=== PATIENT | female | born 1945 | race Caucasian/White ===

== ENCOUNTER 2024-10-10 15:25 | Emergency (ER) | payer MEDICARE, SELFPAY ==
--- NOTE | ~2024-10-10 | XR_ITS ---
CLINICAL HISTORY: right side chest wall pain Frontal chest and right ribs three views Comparison: None Findings: Lungs are clear without acute infiltrates. Heart size is normal. No pneumothorax. No acute fracture or dislocation in the rib cage. No significant focal bony abnormalities. Impression: No significant abnormalities This document has been electronically signed by: Darell Johnson MD on 10/10/2024 17:38:19
--- NOTE | ~2024-10-10 | XR_ITS ---
CLINICAL HISTORY: fall Left ankle three views Comparison: None Findings: Nondisplaced medial malleolus fracture. No other acute bony abnormality noted. Ankle mortise is intact. Impression: Nondisplaced medial malleolus fracture This document has been electronically signed by: Darell Johnson MD on 10/10/2024 17:40:52
--- NOTE | ~2024-10-10 | XR_ITS ---
CLINICAL HISTORY: s p fall Pelvis and right hip two views Comparison: None Findings: No acute fracture or dislocation identified. Mild degenerative change in the hips. No radiopaque foreign body noted. Impression: No acute bony abnormality This document has been electronically signed by: Darell Johnson MD on 10/10/2024 20:47:26
[2024-10-10 15:35] VITALS: BP 144/64; BP 148/67; PULSE 110; PULSE 99; RESP 18; TEMP 36.4; O2SAT 92; O2SAT 97; BMI 25.3
[2024-10-10 15:43] VITALS: BP 117/97; PULSE 102; PULSE 97; RESP 16; RESP 18; O2SAT 91; O2SAT 93
--- NOTE | 2024-10-10 16:36 | ED.FALL ---
HPI - Fall General Chief Complaint: Fall Stated Complaint: Fall from 4ft, +head strike, no thinners Time Seen by Provider: 10/10/24 16:24 Source: patient and EMS Mode of arrival: EMS Limitations: no limitations History of Present Illness ED Provider: DR. Franks HPI Narrative: 79-year-old female came in by ambulance for evaluation after sustained a mechanical fall. Patient had a performance rehearsal at [employer] stage patient missed a step and fell off the stage about 4 ft height face down patient was able to turn her head patient is sustaining right eyebrow hematoma, no LOC, patient is not taking blood thinner. Patient is complaining of right chest wall pain, left ankle pain, right eyebrow hematoma, right hip pain. No headache, no blurry vision, no neck pain, no back pain, no abdominal pain, no hip pain. Patient initially had O2 sat of 91% patient is nonsmoker have no shortness of breath, no coughing, no recent travel, no lower extremity swelling or tenderness, O2 sat improved with repeat vital signs without intervention. Related Data Allergies Allergy/AdvReac Type Severity Reaction Status Date / Time codeine Allergy Hives Verified 10/10/24 15:42 Sulfa (Sulfonamide Allergy Hives Verified 10/10/24 15:42 Antibiotics) Review of Systems Review of Systems: All other systems are reviewed and are negative Constitutional: Reports as per HPI and Reports no additional constitutional complaints Eyes: Reports as per HPI and Reports no additional eye complaints Reports system reviewed and no additional complaints, except as documented Cardiovascular: Reports as per HPI and Reports no additional cardiovascular complaints Respiratory: Reports as per HPI and Reports no additional respiratory complaints Gastrointestinal: Reports as per HPI and Reports no additional gastrointestinal complaints Genitourinary: Reports no additional female genitourinary complaints Musculoskeletal: Reports no additional musculoskeletal complaints Skin/Breast: Reports system reviewed and no additional complaints, except as docu Psychiatric: Reports no additional psychiatric complaints Endocrine: Reports no additional endocrine complaints Hematologic/Lymphatic: Reports no additional hematologic/lymphatic complaints Allergic/Immunologic: Reports no additional allergic/immunologic complaints Reports system reviewed and no additional complaints, except as documented and Reports Abnormal speech present [facility] Social History Social History Smoked in Last 30 Days: No Advance Directives: No Advance Directives Information Provided: No Physical Exam Vital Signs: Vital Signs: Last Vital Signs Temp 97.0 F 10/10/24 20:13 Pulse 77 10/10/24 20:13 Resp 16 10/10/24 20:13 BP 169/76 H 10/10/24 20:13 Pulse Ox 95 10/10/24 20:13 O2 Del Method Room Air 10/10/24 20:13 BMI result Body Mass Index 25.3 Vital signs have been reviewed and appear to be correct. Blood pressure elevated. Heart rate elevated, Respiratory rate normal. Temperature normal. Repeat O2 sat sustaining 96% on room air with good wave. Appearance: Alert. Oriented X3. No acute distress. Head: Normal external exam. Normocephalic. 2 x 2 cm area of right eyebrow tenderness, no step-off, mild ecchymosis. No Kelly signs noted. No raccoon eyes noted Eyes: PERRLA. EOMI. Conjunctiva and sclera normal. Eyelids normal. ENT: TM's Normal. Pharynx normal. Uvula midline. Moist mucous membranes. No trismus noted. No drooling noted. No muffled voice noted. Neck: Normal inspection. Neck supple. FROM. No adenopathy. Thyroid Normal. No meningeal signs. No neck mass noted. CVS: Normal heart rate and rhythm. Heart sound normal. No murmurs noted. Pulses normal throughout. Respiratory: No respiratory distress. Painless inspiration. Breath sounds normal. No wheezes/rales/rhonchi noted. Right-sided chest wall tenderness with no step-off, No accessory muscle usage noted or decreased air movement noted. Abdomen: Soft and nontender. Bowel sounds normal in all 4 quadrants. No distention noted. No organomegaly noted. No visible injury noted. Back: No CVA tenderness. Full range of motion noted. Skin: Skin warm and dry. Normal skin color. Normal skin turgor. No rashes/lesions/lacerations noted. Extremities: Left ankle exam: Tenderness over medial malleolus, no step-off, no deformity, neurovascular is intact. Neuro: Oriented X 3. Cranial nerve exam: II-XII are grossly intact No motor deficit. No sensory deficit. Reflexes normal. Course Reevaluation(s) Reevaluation #1: Repeat vital signs showed stable O2 sat, right-sided chest wall contusion, facial right eyebrow contusion, and left hip contusion. Able to ambulate in the ED. Repeat neuro exam is intact with GCS of 15. S/p posterior and sugar-tong left lower extremity splint patient is walking with crutches with no weight-bearing. Time: 20:50 Medications Administered Discontinued Medications Generic Name Dose Route Start Last Admin Trade Name Leland PRN Reason Stop Dose Admin Acetaminophen 650 mg 10/10/24 18:45 10/10/24 18:55 Acetaminophen 325 Mg Tablet PO 10/10/24 18:46 650 mg ONCE ONE Administration Ibuprofen 400 mg 10/10/24 16:36 10/10/24 16:46 Ibuprofen 400 Mg Tablet PO 10/10/24 16:37 400 mg ONCE ONE Administration Procedures Orthopedic Splinting/Casting Injury #1: Side: left Lower Extremity Injury Location: ankle Lower Extremity Immobilizer: posterior splint Other Orthopedic Equipment: crutches Medical Decision Making Differential Diagnosis Differential Diagnoses: The differential diagnosis associated with the presentation includes (Head injury, cervical spine injury, extremity injury, chest injury, rib fracture, abdominal injury, back, left ankle fracture, right hip fracture.) Admission/Observation Consideration of admission/observation: Escalation of care including admission/observation considered Independent Interpretation I performed an independent interpretation of an: Plain X-Ray (Left ankle/chest/right ribs: No rib fractures, left medial malleolus fracture.) Radiology Impression Discussion of test interpretation with radiology: I have reviewed the radiologist's reading. Discharge Plan Discharge Clinical Impression: Contusion of face, Medial malleolar fracture Patient Disposition: Home, Self-Care Instructions: Ankle Fracture (ED) Referrals: Gary Ma MD [Physician] - Print Language: [place]
[2024-10-10] MEDS: Ibuprofen 400 MG TABLET PO (16:46)
--- NOTE | 2024-10-10 17:00 | PC.NURSE ---
Patient is a 79-year-old female came in by ambulance for evaluation after sustained a mechanical fall. 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 Lungs clear bilat. Respirations even and non-labored. Abdomen soft, non-tender wit positive bowel sounds. Positive pedal pulses. c/o right hip and left ankle pain. Swelling and bruising noted to left ankle. Ice pack applied.
[2024-10-10 17:49] VITALS: BP 133/75; PULSE 80; RESP 18; O2SAT 95
--- NOTE | 2024-10-10 18:00 | PC.NURSE ---
Ankle xray showed Nondisplaced medial malleolus fracture
--- NOTE | 2024-10-10 18:18 | PC.NURSE ---
Splint applied to left ankle
[2024-10-10] MEDS: Acetaminophen 325 MG TABLET 650 MG PO (18:55)
[2024-10-10 20:13] VITALS: BP 169/76; PULSE 77; RESP 16; TEMP 36.1; O2SAT 95
--- NOTE | 2024-10-10 20:20 | MHC.EDTECH ---
when patient stood up to practice walking with the crutches, she c/o pain on her right hip
[2024-10-10 21:48] VITALS: BP 169/76; PULSE 77; RESP 16; TEMP 36.1; O2SAT 95
--- NOTE | 2024-10-10 21:48 | PC.NURSE ---
Pt a&ox4, no signs of distress Pt reports 5/10 ankle pain Plan of care ongoing.
== END 2024-10-10 21:55 | disposition home or self-care (01) ==
PROVIDERS: Emergency Provider Emergency Medicine
DX: S82.892A Other fracture of left lower leg, initial encounter for closed fracture (principal); S00.83XA Contusion of other part of head, initial encounter; R10.2 Pelvic and perineal pain; R07.89 Other chest pain; R07.81 Pleurodynia; W10.9XXA Fall (on) (from) unspecified stairs and steps, initial encounter; Y93.9 Activity, unspecified; Y92.9 Unspecified place or not applicable; Y99.8 Other external cause status; Z79.899 Other long term (current) drug therapy
CPT/HCPCS: 29515; 71101; 73502; 73600; 99283; 99284

== ENCOUNTER → 2024-10-10 16:34 | Outpatient (BNV) | payer BC, SELFPAY | PROVIDERS: Emergency Provider Emergency Medicine; Visit Provider Radiology Diagnostic Radiology | DX: R07.89 Other chest pain (principal); M25.551 Pain in right hip; S82.55XA Nondisplaced fracture of medial malleolus of left tibia, initial encounter for closed fracture; W19.XXXA Unspecified fall, initial encounter | CPT/HCPCS: 71101; 73502; 73600 ==